=== PATIENT | female | born 1960 | race Caucasian/White ===

== ENCOUNTER 2024-01-25 06:14 | Emergency (ER) | payer OTHER, SELFPAY ==
[2024-01-25 06:29] VITALS: BP 100/56
--- NOTE | 2024-01-25 07:38 | ED.GENMED ---
History of Present Illness
<Galina Michaels BREAKER UP MACHINE OPERATOR - Last Filed: 01/25/24 15:53>
General
Chief Complaint: Flank Pain
Source: patient
Exam Limitations: none
Time Seen by Provider: 01/25/24 07:33
Nursing documentation reviewed up to this point in time: agreed with
Travel History
Have you had any contact with someone who has COVID-19?: No
Do you have any symptoms of coronavirus? Fever > 100 degrees, chills, cough, shortness of breath, sore throat, loss of taste or smell, muscle aches, or headache?: No
History of Present Illness
History of Present Illness:
63-year-old female with history of pulmonary hypertension, heart murmur, cardiac cath 2008, hiatal hernia, presents stating she has had gradually increasing left flank and upper abdominal pain over the past 5 days. It is constant but waxes and
wanes seems to 'comes in waves.' Denies dysuria, does feel nauseous, has not vomited. Feels chilled but no fever. No diarrhea or constipation.
She had diarrhea once a day with abdominal cramping over the past month, she saw her PCP 10 days ago and states her blood work and stool testing was all 'okay.'
Past History
<Galina Michaels, BREAKER UP MACHINE OPERATOR - Last Filed: 01/25/24 15:53>
Past History
ED Past Medical History: Other (Pulmonary hypertension, hiatal hernia)
ED Past Surgical History: Cardiac (Last cardiac cath 2008)
Social History
Tobacco: Non-smoker
Alcohol: None
Drug: None
Personal:
Living: with family
Employment: Employed
Family History
Family History: Negative Sudden
Review of Systems
<Galina Michaels, BREAKER UP MACHINE OPERATOR - Last Filed: 01/25/24 15:53>
Review of Systems
Allergies reviewed?: Yes
All Other Systems: ROS reviewed and negative except as documented in HPI and ROS
Constitutional: Reports chills; Denies fever
Respiratory: Denies trouble breathing
Cardiac: Denies chest pain
ABD/GI: Reports abdominal pain and nausea; Denies vomiting or diarrhea
: Reports flank pain (left); Denies dysuria, frequency, difficulty voiding or urgency
Musculoskeletal: Reports no symptoms
Skin: Reports no symptoms
Neurological: Reports no symptoms
Phy Exam
<Galina Michaels, BREAKER UP MACHINE OPERATOR - Last Filed: 01/25/24 15:53>
Physical Exam
Physical Exam:
GENERAL: No acute distress. A&Ox3.
CONSTITUTIONAL: Afebrile.
ENMT: moist mucus membranes, Pharynx nl
RESPIRATORY: Regular respirations, nonlabored, lungs clear.
CARDIOVASCULAR: Regular rate and rhythm, no murmurs, no rubs.
GI: Soft, nontender, left flank tenderness, normal BS
MUSCULOSKELETAL: Moves with ease. Well perfused.
SKIN: Warm, dry, pink
PSYCH: Normal mood and affect. Well kept, interactive and appropriate
NEUROLOGIC: Awake, alert and oriented. No focal neurological deficits
Course
<Galina Michaels, BREAKER UP MACHINE OPERATOR - Last Filed: 01/25/24 15:53>
Orders/Labs/Results
Orders:
Orders
01/25/24 07:51
CMP [Comprehensive Metabolic Panel] Urgent
Complete Blood Count/With Diff Urgent
Urinalysis Urgent
Date Specimen was Collected: 01/25/24
Time Specimen was Collected: 06:33
01/25/24 08:16
0.9% Sodium Chloride 1000 ml [Nss] 1,000 ml IV BOLUS
01/25/24 11:44
Chest [CR Chest - 2 Views ] Urgent
Comment:
Reason For Exam: pain
01/25/24 11:51
Ketorolac [Toradol] 15 mg .ROUTE .STK-MED ONE
01/25/24 11:53
Ketorolac [Toradol] 15 mg IV NOW STA
01/25/24 13:23
CT Abd/Pel (IV only)-DH only Urgent
Comment:
Reason For Exam: LUQ pain
Abnormal Lab Results
01/25/24
07:51
WBC 4.3 L 10^3/uL
(4.8-10.8)
Chloride 108 H mmol/L
(98-107)
Calcium 10.4 H mg/dl
(8.4-10.2)
01/25/24 07:51
01/25/24 07:51
Vital Signs
Initial and Last Documented VS:
Initial Vital Signs
Temp Pulse Resp BP Pulse Ox
97.7 F 80 22 100/56 98
01/25/24 06:29 01/25/24 06:29 01/25/24 06:29 01/25/24 06:29 01/25/24 06:29
Last Documented Vital Signs
Temp Pulse Resp BP Pulse Ox
97.7 F 69 18 90/51 95
01/25/24 06:29 01/25/24 13:15 01/25/24 13:15 01/25/24 13:15 01/25/24 13:15
Casing Machine Operator consulted with Physician
Casing Machine Operator consulted with physician?: Yes
Name of Physician Consulted: Farhad
<Ryan Llamas, DO - Last Filed: 01/25/24 13:26>
Orders/Labs/Results
Orders:
Orders
01/25/24 07:51
CMP [Comprehensive Metabolic Panel] Urgent
Complete Blood Count/With Diff Urgent
Urinalysis Urgent
Date Specimen was Collected: 01/25/24
Time Specimen was Collected: 06:33
01/25/24 08:16
0.9% Sodium Chloride 1000 ml [Nss] 1,000 ml IV BOLUS
01/25/24 11:44
Chest [CR Chest - 2 Views ] Urgent
Comment:
Reason For Exam: pain
01/25/24 11:51
Ketorolac [Toradol] 15 mg .ROUTE .STK-MED ONE
01/25/24 11:53
Ketorolac [Toradol] 15 mg IV NOW STA
01/25/24 13:23
CT Abd/Pel (IV only)-DH only Urgent
Comment:
Reason For Exam: LUQ pain
Abnormal Lab Results
01/25/24
07:51
WBC 4.3 L 10^3/uL
(4.8-10.8)
Chloride 108 H mmol/L
(98-107)
Calcium 10.4 H mg/dl
(8.4-10.2)
01/25/24 07:51
01/25/24 07:51
Vital Signs
Initial and Last Documented VS:
Initial Vital Signs
Temp Pulse Resp BP Pulse Ox
97.7 F 80 22 100/56 98
01/25/24 06:29 01/25/24 06:29 01/25/24 06:29 01/25/24 06:29 01/25/24 06:29
Last Documented Vital Signs
Temp Pulse Resp BP Pulse Ox
97.7 F 69 18 90/51 95
01/25/24 06:29 01/25/24 13:15 01/25/24 13:15 01/25/24 13:15 01/25/24 13:15
<Galina Michaels NP - Last Filed: 01/25/24 15:53>
MDM/Problems Addressed
Differential Diagnosis Includes:
UTI, kidney stone
MDM/Problems Addressed:
63-year-old female with history of pulmonary hypertension, heart murmur, cardiac cath 2008, hiatal hernia, presents stating she has had gradually increasing left flank and upper abdominal pain over the past 5 days. It is constant but waxes and
wanes seems to 'comes in waves.' Denies dysuria, does feel nauseous, has not vomited. Feels chilled but no fever. No diarrhea or constipation.
She had diarrhea once a day with abdominal cramping over the past month, she saw her PCP 10 days ago and states her blood work and stool testing was all 'okay.'
01/25/2024 0816 AM
CBC normal
CMP normal
01/25/2024 0857 AM
UA negative
01/25/2024 1147 AM
In to reevaluate patient
Discussed test results's having pain she says is under the left rib. Abdomen is benign, I can reproduce the pain when I push on the ridge of her left lower rib cage.
No recollection of overuse or injury. Patient states she has had this once before a few years ago and it took months for it to go away, she was even sent to physical therapy at that time for similar pain as 'they could find nothing.'
IV Toradol and chest x-ray ordered
01/25/2024 1328 PM
CXR NAD
Patient states she is feeling no better. Dr. Llamas consulted to evaluate patient. It was decided that we would do a CAT scan with IV only contrast.
01/25/2024 1448 PM
CAT scan radiology results reviewed: IMPRESSION:
1. No significant acute abnormality identified in the abdomen or pelvis, as described above.
2. Mild to moderate diffuse colonic stool burden may reflect constipation.
result discussed with patient. Her PCP has recommended that she follow-up with the GI doctor and the steel analyst for her various symptoms. She states she has their information and will make follow-up appointments.
She has an appointment with her carbider
Patient observed ambulating out with normal gait.
<Galina Michaels NP - Last Filed: 01/25/24 15:53>
*Critical Care Note
Total Time (30-74mins, 75-104mins- exclusive of procedures): Not Applicable
ED Attending Note
<Galina Michaels BREAKER UP MACHINE OPERATOR - Last Filed: 01/25/24 15:53>
-
Portions of this chart may have been created with voice recognition software.� Occasional wrong word or��sound alike� substitutions may have occurred due to the inherent limitations of voice recognition software.
<Ryan Llamas DO - Last Filed: 01/25/24 13:26>
ED Attending Note
Patient seen and examined by attending physician: Yes
I performed the substantive portion of visit, reviewed & personally made and approve the management plan that is documented in note by myself or COREY.: Yes
ED Attending Note:
I have seen and evaluated the patient with a [id number] encounter. I have spoken to the advance practicer provider and involved in the medical history, the physical exam, medical decision making.
Evaluation and management service: agree unless noted differently below.
Results interpretation: agree unless noted differently below.
Focused HPI: 63-year-old female presenting with left chest/abdominal pain.
This has been ongoing for the past week. Patient states she had similar episode in the past and had negative workup. Sitting bed comfortably.
Physical exam: Mild left lower quadrant tenderness. No rebound
Medical Decision Making: Given ongoing symptoms, will obtain CT abdomen/pel. She states has a history of lymphocytic colitis. We discussed follow-up with GI if CTis negative
Discharge Plan
Departure
Patient Disposition: Home (Routine Discharge)
Date of Disposition: 01/25/24
Time of Disposition: 14:50
Patient with high blood pressure during this ER visit?: No
Condition: Fair
Discharge Problem:
Left-sided chest pain, Left lateral abdominal pain, Constipation
Instructions: Constipation, Adult (DC), Bruised Rib (DC), Abdominal Pain
Prescriptions:
No Action
ambrisentan [Letairis] 10 mg Tablet
10 mg PO DAILY
Referrals:
UNKNOWN - PT DOES,NOT KNOW [Family Provider] -
Activity Restrictions/Additional Instructions:
As we discussed, your workup here today shows nothing worrisome.
Your CT scan shows moderate stool in your bowel which can indicate constipation.
You are very tender along the ridge of your left lower rib cage. Therefore I gave you information on a bruised rib FYI.
Tylenol or ibuprofen as needed for pain
Follow-up with your doctor for recheck in 1 week if not better by then
Interventions
Interventions:
*Risk Screen - Suicide Last Done: 01/25/24 06:29
*General Assessment Last Done: 01/25/24 07:40
*Neglect/Abuse Screening Last Done: 01/25/24 06:29
ED- Fall Risk Assessment Last Done: 01/25/24 07:40
*ED COVID-19 Vaccine History Last Done: 01/25/24 07:40
*Nursing Disposition Last Done: 01/25/24 15:11
JP-Anhekz-Wcsoslezks Assessment Last Done: 01/25/24 07:40
ED-Female Genitourinary Assessment Last Done: 01/25/24 07:48
Discharge Date and Time
Discharge Date/Time: 01/25/24 15:11
[2024-01-25 07:40] VITALS: BMI 19.5
[2024-01-25 07:50] VITALS: BP 91/63
[2024-01-25 07:58] LABS: % Basophils 0.5 % (0-2); % Eosinophils 0.9 % (0-6); % Immature Granulocytes 0.2 % (0-0.5); % Lymphocytes 37.1 % (20.5-51.1); % Monocytes 8.9 % (1.7-9.3); % Neutrophils 52.4 % (42.2-75.2); Absolute Lymphocytes 1.6 10^3/uL (1.2-3.4); Absolute Monocytes 0.4 10^3/uL (0.1-0.6); Absolute Neutrophils 2.3 10^3/uL (1.4-6.5); Hemoglobin 13.2 g/dL (12.0-16.0); Mean Corp Hgb Conc. 34.7 g/dL (33.0-37.0); Mean Corpuscular Hgb 30.9 pg (27.0-31.0); Mean Platelet Volume 10.4 fL (7.4-10.4); Nucleated Red Blood Cells % 0 %; Platelet Count 188 10^3/uL (130-400); Red Blood Cell Count 4.27 10^6/uL (4.20-5.40); Red Cell Dist. Width 12.9 % (11.5-14.5); White Blood Cell Count 4.3 10^3/uL (4.8-10.8)
[2024-01-25 08:11] LABS: AST (SGOT) 33 U/L (14-36); Albumin 4.2 g/dl (3.5-5.0); Blood Urea Nitrogen 14 mg/dl (7-17); Carbon Dioxide 26 mmol/L (22-30); Chloride 108 mmol/L (98-107); Estimated Creatinine Clearance 65 ml/min; Glucose 90 mg/dl (70-99); Total Protein 7.2 g/dl (6.3-8.2); eGFR > 60.00
[2024-01-25 08:14] LABS: ALT (SGPT) 24 U/L (0-35); Potassium 4.3 mmol/L (3.5-5.1); Sodium 137 mmol/L (135-145)
[2024-01-25] MEDS: NSS 1000 IV (08:39)
[2024-01-25 08:46] LABS: Alkaline Phosphatase 81 U/L (38-126); Calcium 10.4 mg/dl (8.4-10.2)
[2024-01-25 08:52] LABS: Urine Albumin Negative (Neg - Trace); Urine Bilirubin Negative (Negative); Urine Character Clear (Clear); Urine Color Yellow; Urine Glucose Negative (Negative); Urine Ketone Negative (Negative); Urine Leukocyte Negative (Negative); Urine Nitrite Negative (Negative); Urine Occult Blood Negative (Negative); Urine Urobilinogen Negative (Neg - 1+)
[2024-01-25 09:00] VITALS: BP 80/48
[2024-01-25 10:00] VITALS: BP 88/49
[2024-01-25] MEDS: TORADOL 15 MG IV (11:54)
[2024-01-25 13:13] VITALS: BP 89/51
[2024-01-25 13:15] VITALS: BP 90/51
== END 2024-01-25 15:11 | disposition home or self-care (01) ==
LOC: EMR 06:14
PROVIDERS: Emergency Medicine; EMERGENCY PHYSICIAN Student in an Organized Health Care Education/Training Program
DX: R07.89 Other chest pain (principal); R10.9 Unspecified abdominal pain; K59.00 Constipation, unspecified
CPT/HCPCS: 99285; 96374; 96361; 71046; 74177; 80053; 81003; 85025; Q9967

== ENCOUNTER 2025-04-30 06:27 | Day surgery (SDC) | payer OTHER, SELFPAY | END 2025-04-30 13:13 | disposition home or self-care (01) | LOC: GI 06:27 | PROVIDERS: ATTENDING PHYSICIAN Internal Medicine Gastroenterology; FAMILY PHYSICIAN Family Medicine | DX: R10.10 Upper abdominal pain, unspecified (principal); R12 Heartburn; K31.7 Polyp of stomach and duodenum; K31.9 Disease of stomach and duodenum, unspecified; K29.50 Unspecified chronic gastritis without bleeding; K31.A0 Gastric intestinal metaplasia, unspecified; K20.90 Esophagitis, unspecified without bleeding | CPT/HCPCS: 43239; 88305; 88342 ==